=== PATIENT | female | born 1955 | race Caucasian/White ===

== ENCOUNTER 2025-08-04 19:10 | Emergency (ER) | payer OTHER, SELFPAY ==
[2025-08-04 19:12] VITALS: BP 162/99
[2025-08-04 19:49] LABS: Hematocrit 46.8 % (37.0-47.0); Hemoglobin 16.9 g/dL (12.0-16.0); Mean Corp Hgb Conc. 36.1 g/dL (33.0-37.0); Mean Corpuscular Volume 84.3 fL (81.0-99.0); Platelet Count 289 10^3/uL (130-400); Red Cell Dist. Width 12.1 % (11.5-14.5)
[2025-08-04 19:52] LABS: ALT (SGPT) 20 U/L (0-35); AST (SGOT) 22 U/L (14-36); Albumin 5.4 g/dl (3.5-5.0); Alkaline Phosphatase 77 U/L (38-126); Blood Urea Nitrogen 46 mg/dl (7-17); Calcium 9.9 mg/dl (8.4-10.2); Carbon Dioxide 11 mmol/L (22-30); Chloride 105 mmol/L (98-107); Glucose 179 mg/dl (70-99); Lipase 44 U/L (23-300); Potassium 3.7 mmol/L (3.5-5.1); Sodium 135 mmol/L (135-145); Total Protein 8.6 g/dl (6.3-8.2); eGFR 44.79
[2025-08-04 20:01] LABS: Nucleated Red Blood Cells % 0 %
[2025-08-04 20:40] VITALS: BMI 28.4
[2025-08-04 20:44] VITALS: BP 136/92
--- NOTE | 2025-08-04 20:50 | ED.GENMED ---
History of Present Illness
<Jessica Clemente NP - Last Filed: 08/04/25 22:51>
General
Chief Complaint: Abdominal Symptoms
Source: patient
Exam Limitations: none
Time Seen by Provider: 08/04/25 20:37
Nursing documentation reviewed up to this point in time: agreed with
History of Present Illness
History of Present Illness:
Patient to ED with complaint of vmiting and diarrhea. Symptoms started Saturday AM. Unable to eat or drink due to her symptoms. Denies fever/chills. Reports 12lb weight loss. Diffuse abd. discomfort. Brought to ED by spouse for eval.
Past History
<Jessica Clemente NP - Last Filed: 08/04/25 22:51>
Past History
ED Past Medical History: Hypothyroidism and Other (Gastric bypass in 2003)
ED Past Surgical History: Other (Gastric bypass)
Social History
Tobacco: Non-smoker
Alcohol: None
Family History
Family History: Negative Diabetes, Hypertension or CAD
Review of Systems
<Jessica Clemente NP - Last Filed: 08/04/25 22:51>
Review of Systems
All Other Systems: ROS reviewed and negative except as documented in HPI and ROS
Constitutional: Reports no symptoms
EENT: Reports no symptoms
Respiratory: Reports no symptoms
Cardiac: Reports no symptoms
ABD/GI: Reports abdominal pain (diffuse), nausea, vomiting, anorexia and other (abdominal cramping)
: Reports no symptoms
Musculoskeletal: Reports no symptoms
Skin: Reports no symptoms
Neurological: Reports weakness
Psychiatric: Reports no symptoms
Phy Exam
<Jessica Clemente NP - Last Filed: 08/04/25 22:51>
General Physical Exam
General Presentation: mild distress
General age: appears stated age
General Skin: warm and dry
General Habitus: normal
General Mental: alert
Cardiovascular Exam
Cardiovascular Exam: no edema and tachycardia
Pulmonary Exam
Pulmonary Exam: lungs clear and no respiratory distress
Gastrointestinal Exam
Gastrointestinal Exam: normal bowel sounds, soft, no organomegaly, no pulsatile mass and non distended
Palpation: generalized: Moderate tenderness
Musculoskeletal Exam
Musculoskeletal Exam: full ROM and neuro vasc intact
Skin Exam
Skin Exam: normal color, warm/dry and no rash
Psychiatric Exam
Psychiatric Exam: normal mood/affect
Course
<Jsesica Clemente WIRE [employer]ER - Last Filed: 08/04/25 22:51>
Orders/Labs/Results
Orders:
Orders
08/04/25 19:19
Complete Blood Count/With Diff Urgent
Comprehensive Metabolic Panel Urgent
Lactic Acid Urgent
Lipase Urgent
08/04/25 20:49
CT Abd/pelvis W Iv Cont Urgent
Comment:
Reason For Exam: diffuse pain, vomiting, diarrhea
STOOL [C difficile Antigen & Toxins] Urgent
[facility] Source: Feces/Stool
Specimen Description:
Stool Culture Urgent
[facility] Source: Feces/Stool
Specimen Description:
0.9% Sodium Chloride 1000 ml [Nss] 1,000 ml IV BOLUS
Ondansetron Injectable [Zofran] 4 mg IV NOW STA
08/04/25 22:15
0.9% Sodium Chloride 1000 ml [Nss] 1,000 ml IV BOLUS
08/04/25 23:05
Basic Metabolic Panel Urgent
Abnormal Lab Results
08/04/25
19:19
RBC 5.55 H 10^6/uL
(4.20-5.40)
Hgb 16.9 H g/dL
(12.0-16.0)
Absolute Lymphs (auto) 1.0 L 10^3/uL
(1.2-3.4)
Absolute Monos (auto) 1.2 H 10^3/uL
(0.1-0.6)
Lymphocytes % 15.3 L %
(20.5-51.1)
Monocytes % 19.7 H %
(1.7-9.3)
Carbon Dioxide 11 L* mmol/L
(22-30)
BUN 46 H mg/dl
(7-17)
Creatinine 1.3 H mg/dL
(0.6-1.0)
Glucose 179 H mg/dl
(70-99)
Total Protein 8.6 H g/dl
(6.3-8.2)
Albumin 5.4 H g/dl
(3.5-5.0)
08/04/25 19:19
Vital Signs
Initial and Last Documented VS:
Initial Vital Signs
Temp Pulse Resp BP Pulse Ox
98.0 F 119 20 162/99 97
08/04/25 19:12 08/04/25 19:12 08/04/25 19:12 08/04/25 19:12 08/04/25 19:12
Last Documented Vital Signs
Temp Pulse Resp BP Pulse Ox
98.0 F 95 21 139/99 97
08/04/25 19:12 08/04/25 21:45 08/04/25 21:45 08/04/25 21:00 08/04/25 21:45
<Tarun Salas, DO - Last Filed: 08/04/25 23:24>
Orders/Labs/Results
Orders:
Orders
08/04/25 19:19
Complete Blood Count/With Diff Urgent
Comprehensive Metabolic Panel Urgent
Lactic Acid Urgent
Lipase Urgent
08/04/25 20:49
CT Abd/pelvis W Iv Cont Urgent
Comment:
Reason For Exam: diffuse pain, vomiting, diarrhea
STOOL [C difficile Antigen & Toxins] Urgent
[place] Source: Feces/Stool
Specimen Description:
Stool Culture Urgent
[place] Source: Feces/Stool
Specimen Description:
0.9% Sodium Chloride 1000 ml [Nss] 1,000 ml IV BOLUS
Ondansetron Injectable [Zofran] 4 mg IV NOW STA
08/04/25 22:15
0.9% Sodium Chloride 1000 ml [Nss] 1,000 ml IV BOLUS
08/04/25 23:05
Basic Metabolic Panel Urgent
Abnormal Lab Results
08/04/25
19:19
RBC 5.55 H 10^6/uL
(4.20-5.40)
Hgb 16.9 H g/dL
(12.0-16.0)
Absolute Lymphs (auto) 1.0 L 10^3/uL
(1.2-3.4)
Absolute Monos (auto) 1.2 H 10^3/uL
(0.1-0.6)
Lymphocytes % 15.3 L %
(20.5-51.1)
Monocytes % 19.7 H %
(1.7-9.3)
Carbon Dioxide 11 L* mmol/L
(22-30)
BUN 46 H mg/dl
(7-17)
Creatinine 1.3 H mg/dL
(0.6-1.0)
Glucose 179 H mg/dl
(70-99)
Total Protein 8.6 H g/dl
(6.3-8.2)
Albumin 5.4 H g/dl
(3.5-5.0)
08/04/25 19:19
Vital Signs
Initial and Last Documented VS:
Initial Vital Signs
Temp Pulse Resp BP Pulse Ox
98.0 F 119 20 162/99 97
08/04/25 19:12 08/04/25 19:12 08/04/25 19:12 08/04/25 19:12 08/04/25 19:12
Last Documented Vital Signs
Temp Pulse Resp BP Pulse Ox
98.0 F 95 21 139/99 97
08/04/25 19:12 08/04/25 21:45 08/04/25 21:45 08/04/25 21:00 08/04/25 21:45
<Jessica Clemente W[employer] - Last Filed: 08/04/25 22:51>
*Pulse Oximetry
SaO2: 97
Oxygen Mode of Delivery: Room air
ED Attending Note
<Jessica Clemente W[employer] - Last Filed: 08/04/25 22:51>
-
Portions of this chart may have been created with voice recognition software.� Occasional wrong word or��sound alike� substitutions may have occurred due to the inherent limitations of voice recognition software.
<Tarun Salas, DO - Last Filed: 08/04/25 23:24>
ED Attending Note
Patient seen and examined by attending physician: Yes
ED Attending Note:
I have reviewed and agree with history and treatment plan by Jessica Clemente. My exam revealed 70 -year-old female in no acute distress. Patient feels much improved after IV fluids and is tolerating oral fluids at this time. Will repeat BMP. And
if bicarb is improving, and patient continues to feel well we will discharge home.
Discharge Plan
Departure
Prescriptions:
No Action
ascorbic acid (vitamin C) [Vitamin C] 500 MG tablet
500 mg PO DAILY
Systane (PF) 1 EACH dropperette
1 drp BOTH EYES HS
ginkgo biloba leaf extract 60 mg Capsule
120 mg PO DAILY Qty: 0
ferrous gluconate 225 mg (27 mg iron) Tablet
225 mg PO DAILY Qty: 0
calcium carb-D3-mag ox-zinc ox 333 mg-133 unit -133 mg-5 mg Tablet
1 tab PO DAILY Qty: 0
multivitamin with folic acid [Tab-A-Ralf] 1 TABLET tablet
1 tab PO DAILY
turmeric 400 mg Capsule
400 mg PO DAILY Qty: 0
hydroxyzine HCl 50 mg Tablet
50 mg PO HS
levothyroxine [Synthroid] 88 mcg Tablet
88 mcg PO DAILY
gmjaimupzul-culnztwoa-itq C-Mn [Glucosamine Complex] 500-400 mg Capsule
1 cap PO DAILY
coQ10 (ubiquinol) 100 mg Capsule
100 mg PO DAILY
Referrals:
Jessica Trivedi DO [Family Provider, Family Practice]
Interventions
Interventions:
*Risk Screen - Suicide Last Done: 08/04/25 20:44
*General Assessment Last Done: 08/04/25 19:12
*Neglect/Abuse Screening Last Done: 08/04/25 20:44
*ED- Fall Risk Assessment Last Done: 08/04/25 20:44
*ED COVID-19 Vaccine History Last Done: 08/04/25 20:44
NR-Vbvgsm-Sbmjgkrpuz Assessment Last Done: 08/04/25 20:50
Discharge Date and Time
Print Language: MALTESE
[2025-08-04 21:00] VITALS: BP 139/99
[2025-08-04] MEDS: ZOFRAN 4 MG IV (21:01)
[2025-08-04] MEDS: NSS 1000 IV ×2 (21:01→22:15)
[2025-08-04 22:00] VITALS: BP 159/137
[2025-08-04 23:00] VITALS: BP 129/69
[2025-08-04 23:51] LABS: Blood Urea Nitrogen 44 mg/dl (7-17); Calcium 8.4 mg/dl (8.4-10.2); Carbon Dioxide 18 mmol/L (22-30); Chloride 109 mmol/L (98-107); Estimated Creatinine Clearance 57 ml/min; Glucose 111 mg/dl (70-99); Potassium 3.6 mmol/L (3.5-5.1); Sodium 135 mmol/L (135-145); eGFR > 60.00
== END 2025-08-05 00:34 | disposition home or self-care (01) ==
LOC: EMR 19:10
PROVIDERS: Nurse Practitioner; Student in an Organized Health Care Education/Training Program; EMERGENCY PHYSICIAN Emergency Medicine; FAMILY PHYSICIAN Family Medicine
DX: K52.9 Noninfective gastroenteritis and colitis, unspecified (principal); E03.9 Hypothyroidism, unspecified; Z98.84 Bariatric surgery status
CPT/HCPCS: 99284; 96374; 96361 ×2; 74177; 80048; 80053; 83605; 83690; 85025; 87045; 87046; 87324; 87427; 87449; Q9967

== ENCOUNTER 2025-08-06 16:25 | Inpatient (IN) | payer OTHER, SELFPAY ==
[2025-08-06 11:21] VITALS: BP 118/82
[2025-08-06 12:17] VITALS: BMI 27.7
[2025-08-06 12:24] VITALS: BP 119/83
--- NOTE | 2025-08-06 12:29 | ED.GENMED ---
History of Present Illness
<Marla Mclain PA-C - Last Filed: 08/06/25 14:51>
General
Chief Complaint: Abdominal Symptoms
Source: patient
Exam Limitations: none
Time Seen by Provider: 08/06/25 12:14
History of Present Illness
History of Present Illness:
70yoF with a history of hypothyroidism presenting for evaluation of diarrhea. Symptoms initially began 4 days ago. She was seen in the ED on 08/04/2025 for the symptoms. She underwent CT abdomen which showed evidence of enteritis. Lab work
initially showed a metabolic acidosis with a bicarb of 11. She was given IV fluids and bicarb improved to 18 and she was discharged. Since discharge, her diarrhea has persisted. She has had approximately 6 bowel movements since midnight last
night which are watery. She feels extremely weak and was having trouble walking up the steps today. She is also having shortness of breath and intermittent chest pains particularly if she sits on her left side. She has some mild epigastric
discomfort which she attributes to her hiatal hernia. She denies any fevers, vomiting, hematochezia. No recent travel, sick contacts, suspicious food intake, or recent antibiotics. Stool testing sent 2 days ago. C. difficile testing negative,
stool culture still pending.
Past History
<Marla Mclain PA-C - Last Filed: 08/06/25 14:51>
Past History
ED Past Medical History: Hypothyroidism and Other (Gastric bypass in 2003)
ED Past Surgical History: Other (Gastric bypass)
Social History
Tobacco: Non-smoker
Alcohol: None
Family History
Family History: Negative Diabetes, Hypertension or CAD
Phy Exam
<Marla Mclain PA-C - Last Filed: 08/06/25 14:51>
General Physical Exam
General Presentation: well appearing and no apparent distress
General Skin: warm and dry
General Habitus: normal
General Mental: alert
ENT Exam
ENT Exam: normocephalic
Cardiovascular Exam
Cardiovascular Exam: regular rate/rhythm
Pulmonary Exam
Pulmonary Exam: lungs clear, no respiratory distress, no rales, no crackles, no rhonchi and no wheezing
Gastrointestinal Exam
Gastrointestinal Exam: soft, non distended and other (Mild tenderness in epigastrium. Abdomen soft, non-distended. No rebound or guarding.)
Neurological Exam
Neurological Exam: alert
[place] Coma Scale
Eye Opening: Spontaneous
Verbal Response: Oriented
Motor Response: Obeys Commands
GCS Total Score: 15
Skin Exam
Skin Exam: normal color and warm/dry
Psychiatric Exam
Psychiatric Exam: normal mood/affect
<Jordon Lindsey MD - Last Filed: 08/08/25 20:58>
[place] Coma Scale
GCS Total Score: 15
<Chucky Eric PA-C - Last Filed: 08/08/25 08:37>
[place] Coma Scale
GCS Total Score: 15
Course
<Marla Mclain PA-C - Last Filed: 08/06/25 14:51>
Orders/Labs/Results
Orders:
Orders
08/06/25 12:25
Electrocardiogram (*1) Urgent
Reason for Study: Shortness of Breath
EKG- Treatment ONCE
0.9% Sodium Chloride 1000 ml [Nss] 1,000 ml IV BOLUS
Ondansetron Injectable [Zofran] 4 mg IV NOW STA
08/06/25 12:31
Complete Blood Count/With Diff Urgent
Comprehensive Metabolic Panel Urgent
Lipase Urgent
Magnesium Urgent
Troponin I Urgent
08/06/25 13:38
Potassium Chloride [KCl] 40 meq PO NOW STA
08/06/25 13:49
Potassium Chloride [KCl] 20 meq 0.9% Sodium Chloride 150 ml [Nss] 150 ml IV NOW
08/06/25 13:50
Ketorolac [Toradol] 15 mg IV NOW STA
08/06/25 16:10
Admit/Transfer Patient As Directed
Co-Sign Provider:
Level of Care: Inpatient admission
Assign to:: Medical/Surgical
Physician / Group: hospitalist
Diagnosis: Gastroenteritis
Reason for Hospitalization: Gastroenteritis, IV hydration
Expected length of stay greater than two midnights?: Yes
ELOS- Estimated Length of Stay in days: 3
I certify the patient meets the requirements for IP care: Yes
08/06/25 16:11
PRN Pain Medication Management As Directed
May give lesser potent ordered pain med per pt: Yes
preference::
Protocol:: Medication orders for pain may be administered in a
manner that supports deferring to patient preference
when the pt is:
- Requesting an ordered lesser potent pain medication.
Least to most potent pain medications are defined
as: acetaminophen < NSAID < tramadol < opioids
(morphine, oxycodone, hydromorphone).
- Requesting a lesser dose of the same medication IF
ORDERED.
- Requesting a less intrusive route of administration
if both routes are prescribed by the provider (PO <
IV).
08/06/25 16:13
Code Status As Directed
Resuscitation Status: Full Code
08/06/25 16:17
Add On - Microbiology Routine
Tests Added?: Norovirus by PCR
Lactated Ringers [Lr] 1,000 ml IV BOLUS
CR Chest - 2 Views Routine
Reason For Exam: SOB
08/06/25 17:00
Pantoprazole [Protonix] 40 mg PO DAILY
08/06/25 17:27
Acetaminophen [Tylenol] 650 mg PO Q4HPRN PRN
Lactated Ringers [Lr] 1,000 ml IV 100 mls/hr
Ondansetron Injectable [Zofran] 4 mg IV Q6HPRN PRN
08/06/25 17:27
Activity As Directed
Activity Level: With Assistance
Vital Signs As Directed
Frequency: Per unit guidelines
DX Deep Vein Thrombosis Video Routine
08/06/25 19:00
Enoxaparin Sodium [Lovenox] 40 mg SC QPM
08/06/25 20:48
BMP [Basic Metabolic Panel] Routine
Lactate Level [Lactic Acid] Routine
TSH Reflex To Free T4 Routine
08/06/25 22:00
Artificial Tears (Pf) [Refresh Eye Drops (Pf)] 1 drops BOTH EYES HS
HydrOXYZINE [Atarax] 50 mg PO HS
08/07/25 06:00
Levothyroxine [Synthroid] 88 mcg PO DAILY@0600
08/07/25 07:17
Basic Metabolic Panel IN AM
08/07/25 09:02
Complete Blood Count/No Diff IN AM
Abnormal Lab Results
08/06/25
12:31
Hgb 16.3 H g/dL
(12.0-16.0)
MCHC 37.2 H g/dL
(33.0-37.0)
Abs Immat Gran (auto) 0.1 H 10^3/uL
(0-0.05)
Absolute Monos (auto) 1.3 H 10^3/uL
(0.1-0.6)
Immature Gran % 1.0 H %
(0-0.5)
Monocytes % 15.8 H %
(1.7-9.3)
Potassium 2.9 L mmol/L
(3.5-5.1)
Carbon Dioxide 16 L mmol/L
(22-30)
BUN 32 H mg/dl
(7-17)
Glucose 102 H mg/dl
(70-99)
08/06/25 12:31
08/06/25 12:31
Vital Signs
Initial and Last Documented VS:
Initial Vital Signs
Temp Pulse Resp BP Pulse Ox
98.2 F 104 22 118/82 97
08/06/25 11:21 08/06/25 11:21 08/06/25 11:21 08/06/25 11:21 08/06/25 11:21
Last Documented Vital Signs
Temp Pulse Resp BP Pulse Ox
98.2 F 81 18 125/78 100
08/08/25 16:00 08/08/25 16:00 08/08/25 16:00 08/08/25 16:00 08/08/25 16:00
<Jordon Lindsey MD - Last Filed: 08/08/25 20:58>
Orders/Labs/Results
Orders:
Orders
08/06/25 12:25
Electrocardiogram (*1) Urgent
Reason for Study: Shortness of Breath
EKG- Treatment ONCE
0.9% Sodium Chloride 1000 ml [Nss] 1,000 ml IV BOLUS
Ondansetron Injectable [Zofran] 4 mg IV NOW STA
08/06/25 12:31
Complete Blood Count/With Diff Urgent
Comprehensive Metabolic Panel Urgent
Lipase Urgent
Magnesium Urgent
Troponin I Urgent
08/06/25 13:38
Potassium Chloride [KCl] 40 meq PO NOW STA
08/06/25 13:49
Potassium Chloride [KCl] 20 meq 0.9% Sodium Chloride 150 ml [Nss] 150 ml IV NOW
08/06/25 13:50
Ketorolac [Toradol] 15 mg IV NOW STA
08/06/25 16:10
Admit/Transfer Patient As Directed
Co-Sign Provider:
Level of Care: Inpatient admission
Assign to:: Medical/Surgical
Physician / Group: hospitalist
Diagnosis: Gastroenteritis
Reason for Hospitalization: Gastroenteritis, IV hydration
Expected length of stay greater than two midnights?: Yes
ELOS- Estimated Length of Stay in days: 3
I certify the patient meets the requirements for IP care: Yes
08/06/25 16:11
PRN Pain Medication Management As Directed
May give lesser potent ordered pain med per pt: Yes
preference::
Protocol:: Medication orders for pain may be administered in a
manner that supports deferring to patient preference
when the pt is:
- Requesting an ordered lesser potent pain medication.
Least to most potent pain medications are defined
as: acetaminophen < NSAID < tramadol < opioids
(morphine, oxycodone, hydromorphone).
- Requesting a lesser dose of the same medication IF
ORDERED.
- Requesting a less intrusive route of administration
if both routes are prescribed by the provider (PO <
IV).
08/06/25 16:13
Code Status As Directed
Resuscitation Status: Full Code
08/06/25 16:17
Add On - Microbiology Routine
Tests Added?: Norovirus by PCR
Lactated Ringers [Lr] 1,000 ml IV BOLUS
CR Chest - 2 Views Routine
Reason For Exam: SOB
08/06/25 17:00
Pantoprazole [Protonix] 40 mg PO DAILY
08/06/25 17:27
Acetaminophen [Tylenol] 650 mg PO Q4HPRN PRN
Lactated Ringers [Lr] 1,000 ml IV 100 mls/hr
Ondansetron Injectable [Zofran] 4 mg IV Q6HPRN PRN
08/06/25 17:27
Activity As Directed
Activity Level: With Assistance
Vital Signs As Directed
Frequency: Per unit guidelines
DX Deep Vein Thrombosis Video Routine
08/06/25 19:00
Enoxaparin Sodium [Lovenox] 40 mg SC QPM
08/06/25 20:48
BMP [Basic Metabolic Panel] Routine
Lactate Level [Lactic Acid] Routine
TSH Reflex To Free T4 Routine
08/06/25 22:00
Artificial Tears (Pf) [Refresh Eye Drops (Pf)] 1 drops BOTH EYES HS
HydrOXYZINE [Atarax] 50 mg PO HS
08/07/25 06:00
Levothyroxine [Synthroid] 88 mcg PO DAILY@0600
08/07/25 07:17
Basic Metabolic Panel IN AM
08/07/25 09:02
Complete Blood Count/No Diff IN AM
Abnormal Lab Results
08/06/25
12:31
Hgb 16.3 H g/dL
(12.0-16.0)
MCHC 37.2 H g/dL
(33.0-37.0)
Abs Immat Gran (auto) 0.1 H 10^3/uL
(0-0.05)
Absolute Monos (auto) 1.3 H 10^3/uL
(0.1-0.6)
Immature Gran % 1.0 H %
(0-0.5)
Monocytes % 15.8 H %
(1.7-9.3)
Potassium 2.9 L mmol/L
(3.5-5.1)
Carbon Dioxide 16 L mmol/L
(22-30)
BUN 32 H mg/dl
(7-17)
Glucose 102 H mg/dl
(70-99)
08/06/25 12:31
08/06/25 12:31
Vital Signs
Initial and Last Documented VS:
Initial Vital Signs
Temp Pulse Resp BP Pulse Ox
98.2 F 104 22 118/82 97
08/06/25 11:21 08/06/25 11:21 08/06/25 11:21 08/06/25 11:21 08/06/25 11:21
Last Documented Vital Signs
Temp Pulse Resp BP Pulse Ox
98.2 F 81 18 125/78 100
08/08/25 16:00 08/08/25 16:00 08/08/25 16:00 08/08/25 16:00 08/08/25 16:00
<Chucky Eric PA-C - Last Filed: 08/08/25 08:37>
Orders/Labs/Results
Orders:
Orders
08/06/25 12:25
Electrocardiogram (*1) Urgent
Reason for Study: Shortness of Breath
EKG- Treatment ONCE
0.9% Sodium Chloride 1000 ml [Nss] 1,000 ml IV BOLUS
Ondansetron Injectable [Zofran] 4 mg IV NOW STA
08/06/25 12:31
Complete Blood Count/With Diff Urgent
Comprehensive Metabolic Panel Urgent
Lipase Urgent
Magnesium Urgent
Troponin I Urgent
08/06/25 13:38
Potassium Chloride [KCl] 40 meq PO NOW STA
08/06/25 13:49
Potassium Chloride [KCl] 20 meq 0.9% Sodium Chloride 150 ml [Nss] 150 ml IV NOW
08/06/25 13:50
Ketorolac [Toradol] 15 mg IV NOW STA
08/06/25 16:10
Admit/Transfer Patient As Directed
Co-Sign Provider:
Level of Care: Inpatient admission
Assign to:: Medical/Surgical
Physician / Group: hospitalist
Diagnosis: Gastroenteritis
Reason for Hospitalization: Gastroenteritis, IV hydration
Expected length of stay greater than two midnights?: Yes
ELOS- Estimated Length of Stay in days: 3
I certify the patient meets the requirements for IP care: Yes
08/06/25 16:11
PRN Pain Medication Management As Directed
May give lesser potent ordered pain med per pt: Yes
preference::
Protocol:: Medication orders for pain may be administered in a
manner that supports deferring to patient preference
when the pt is:
- Requesting an ordered lesser potent pain medication.
Least to most potent pain medications are defined
as: acetaminophen < NSAID < tramadol < opioids
(morphine, oxycodone, hydromorphone).
- Requesting a lesser dose of the same medication IF
ORDERED.
- Requesting a less intrusive route of administration
if both routes are prescribed by the provider (PO <
IV).
08/06/25 16:13
Code Status As Directed
Resuscitation Status: Full Code
08/06/25 16:17
Add On - Microbiology Routine
Tests Added?: Norovirus by PCR
Lactated Ringers [Lr] 1,000 ml IV BOLUS
CR Chest - 2 Views Routine
Reason For Exam: SOB
08/06/25 17:00
Pantoprazole [Protonix] 40 mg PO DAILY
08/06/25 17:27
Acetaminophen [Tylenol] 650 mg PO Q4HPRN PRN
Lactated Ringers [Lr] 1,000 ml IV 100 mls/hr
Ondansetron Injectable [Zofran] 4 mg IV Q6HPRN PRN
08/06/25 17:27
Activity As Directed
Activity Level: With Assistance
Vital Signs As Directed
Frequency: Per unit guidelines
DX Deep Vein Thrombosis Video Routine
08/06/25 19:00
Enoxaparin Sodium [Lovenox] 40 mg SC QPM
08/06/25 20:48
BMP [Basic Metabolic Panel] Routine
Lactate Level [Lactic Acid] Routine
TSH Reflex To Free T4 Routine
08/06/25 22:00
Artificial Tears (Pf) [Refresh Eye Drops (Pf)] 1 drops BOTH EYES HS
HydrOXYZINE [Atarax] 50 mg PO HS
08/07/25 06:00
Levothyroxine [Synthroid] 88 mcg PO DAILY@0600
08/07/25 07:17
Basic Metabolic Panel IN AM
08/07/25 09:02
Complete Blood Count/No Diff IN AM
Abnormal Lab Results
08/06/25
12:31
Hgb 16.3 H g/dL
(12.0-16.0)
MCHC 37.2 H g/dL
(33.0-37.0)
Abs Immat Gran (auto) 0.1 H 10^3/uL
(0-0.05)
Absolute Monos (auto) 1.3 H 10^3/uL
(0.1-0.6)
Immature Gran % 1.0 H %
(0-0.5)
Monocytes % 15.8 H %
(1.7-9.3)
Potassium 2.9 L mmol/L
(3.5-5.1)
Carbon Dioxide 16 L mmol/L
(22-30)
BUN 32 H mg/dl
(7-17)
Glucose 102 H mg/dl
(70-99)
08/06/25 12:31
08/06/25 12:31
Vital Signs
Initial and Last Documented VS:
Initial Vital Signs
Temp Pulse Resp BP Pulse Ox
98.2 F 104 22 118/82 97
08/06/25 11:21 08/06/25 11:21 08/06/25 11:21 08/06/25 11:21 08/06/25 11:21
Last Documented Vital Signs
Temp Pulse Resp BP Pulse Ox
98.2 F 81 18 125/78 100
08/08/25 16:00 08/08/25 16:00 08/08/25 16:00 08/08/25 16:00 08/08/25 16:00
<Marla Mclain PA-C - Last Filed: 08/06/25 14:51>
MDM/Problems Addressed
Differential Diagnosis Includes:
70yoF here with diarrhea and weakness. Seen in ED 2 days ago for the same. Ongoing diarrhea but now much more weak. Had trouble getting up the steps today. HR 104. Remainder of vitals stable. She appears fatigued but is non-toxic. No signs of
peritonitis on abdominal exam. Differential diagnosis includes but is not limited to: Dehydration, electrolyte abnormality, FAITH, viral gastroenteritis, bacterial gastroenteritis
Initial ED plan: Check abdominal labs, magnesium, troponin/EKG. Will defer repeat CT. IV Zofran and fluid bolus for symptoms.
<Marla Mclain PA-C - Last Filed: 08/06/25 14:51>
*Pulse Oximetry
SaO2: 95
Oxygen Mode of Delivery: Room air
Patient hypoxic: no (97%)
*EKG
Interpreted by ED Provider?: Yes
EKG Intrepretation Date: 08/06/25
Heart Rate: 85
Rate: normal
Rhythm: sinus
[place]: left axis deviation
Interval: normal interval
Ischemia: non-specific ST changes
*Critical Care Note
Total Time (30-74mins, 75-104mins- exclusive of procedures): Not Applicable
<Marla Mclain PA-C - Last Filed: 08/06/25 14:51>
Update Note
Update Note:
Labs reveal a potassium of 2.9 and replacement ordered. Persistent metabolic acidosis noted with a bicarb of 16. Creatinine within normal limits. Given decline in status and ongoing diarrhea, will admit for hydration and electrolyte replacement.
<Chucky Eric PA-C - Last Filed: 08/08/25 08:37>
Update Note
Update Note:
Labs reveal a potassium of 2.9 and replacement ordered. Persistent metabolic acidosis noted with a bicarb of 16. Creatinine within normal limits. Given decline in status and ongoing diarrhea, will admit for hydration and electrolyte replacement.
August 08, 2025 8:37 AM: Stool culture positive for Aeromonas Veronii species. Hospitalist team notified as patient was recently admitted, they are aware of these findings.
ED Attending Note
<Marla Mclain PA-C - Last Filed: 08/06/25 14:51>
-
Portions of this chart may have been created with voice recognition software.� Occasional wrong word or��sound alike� substitutions may have occurred due to the inherent limitations of voice recognition software.
<Jordon Lindsey MD - Last Filed: 08/08/25 20:58>
ED Attending Note
Patient seen and examined by attending physician: Yes
ED Attending Note:
Pt presents to ED secondary to persistent diarrhea along with generalized weakness and fatigue over the past 4 days. Pt was seen in ED 2 days ago for similar complaint. Since then, nonbloody diarrhea has persisted. Denies fever. Denies
nausea/vomiting. Denies loss of appetite, but as soon as she eats, she's going to the bathroom w diarrhea, causing her to be extremely tired and fatigued. Denies recent travel. Denies sick contact. Denies recent change in medications/diet.
Physical Exam
General: mild distress, not acutely ill. afebrile
Head: nc/at. eomi
Neck: supple. no meningeal signs.
Heart: s1/s2 regular rate and rhythm,
Lungs: no acute respiratory distress. clear bilaterally
Abdomen: normal bowel sounds. not tender.
Neuro: alert and oriented x 3. no focal neurological deficits
Skin: no rash
Psychiatric: well kept. interactive and cooperative
Extremities: no edema. no calf tenderness.
Blood work reviewed, significant for metabolic acidosis along with hypokalemia, likely secondary to continual GI loss from ongoing diarrhea. In light of patient's overall declining of his condition with poor oral intake, along with lab
abnormalities, patient will be admitted for further evaluation and treatment, including electrolyte repletion and continued IV fluids. Stool culture result from 2 days ago, to be reviewed
Discharge Plan
Departure
Patient Disposition: Admit
Date of Disposition: 08/06/25
Time of Disposition: 14:30
Presentation/result/management discussed w/ accepting MD/DO: Hospitalist
Discharge Problem:
Acute diarrhea, Hypokalemia, Generalized weakness, Metabolic acidosis
Interventions
Interventions:
*Risk Screen - Suicide Last Done: 08/06/25 11:21
*General Assessment Last Done: 08/06/25 11:21
*Neglect/Abuse Screening Last Done: 08/06/25 11:21
*ED- Fall Risk Assessment Last Done: 08/06/25 12:25
*ED COVID-19 Vaccine History Last Done: 08/06/25 12:25
*Nursing Disposition Last Done: 08/06/25 17:22
CG-Blloyb-Fvaawomlml Assessment Last Done: 08/06/25 16:34
Discharge Date and Time
Discharge Date/Time: 08/06/25 17:22
[2025-08-06] MEDS: NSS 1000 IV (12:34)
[2025-08-06] MEDS: ZOFRAN 4 MG IV (12:38)
[2025-08-06 12:48] LABS: Hematocrit 43.8 % (37.0-47.0); Hemoglobin 16.3 g/dL (12.0-16.0); Mean Corp Hgb Conc. 37.2 g/dL (33.0-37.0); Mean Corpuscular Volume 82.5 fL (81.0-99.0); Nucleated Red Blood Cells % 0 %; Platelet Count 339 10^3/uL (130-400); Red Cell Dist. Width 12.1 % (11.5-14.5)
[2025-08-06 13:07] LABS: ALT (SGPT) 17 U/L (0-35); AST (SGOT) 19 U/L (14-36); Albumin 4.8 g/dl (3.5-5.0); Alkaline Phosphatase 82 U/L (38-126); Blood Urea Nitrogen 32 mg/dl (7-17); Calcium 9.9 mg/dl (8.4-10.2); Carbon Dioxide 16 mmol/L (22-30); Chloride 105 mmol/L (98-107); Estimated Creatinine Clearance 63 ml/min; Glucose 102 mg/dl (70-99); Lipase 80 U/L (23-300); Magnesium 1.8 mg/dl (1.6-2.3); Potassium 2.9 mmol/L (3.5-5.1); Sodium 135 mmol/L (135-145); Total Protein 7.6 g/dl (6.3-8.2); eGFR > 60.00
[2025-08-06 13:17] LABS: Troponin I < 0.012 ng/ml
[2025-08-06] MEDS: KCL 40 MEQ PO (13:56)
[2025-08-06] MEDS: TORADOL 15 MG IV (13:59)
[2025-08-06] MEDS: KCL 160 MEQ IV (14:00)
[2025-08-06 15:00] VITALS: BP 120/80
[2025-08-06 16:00] VITALS: BP 120/78
--- NOTE | 2025-08-06 16:20 | HPS.HSE ---
Addendum entered and electronically signed by Oscar Massey MD 08/06/25 17:11:
Seen and examined and discussed with resident in detail I am in agreement with plan and management mentioned by resident.
Patient awake, alert and oriented accompanied by the at the bedside, presented again to the hospital complaining of persistent nonbloody diarrhea and abdominal bloating and discomfort without any nausea or vomiting, no fever or chill, admit
poor appetite.
Denies sick contacts or recent travel or dining outside, 2 days ago she was yellow stool workup so far is pending except C. difficile is negative.
She is complaining of the shortness of breath, and fatigue reproducible pain in the left rib cage area.
Vital signs reviewed
Physical exam:
General: Awake, alert and oriented x3, lethargic not in distress and holds appropriate conversation.
HEENT: No active discharge, ecchymosis or bruising, dry lips, tongue and mucous membrane.
Eyes: No discharge or red conjunctiva, no nystagmus, pupils are reactive and equal
Neck:Supple, no JVD no bruit no goiter.
Respiratory: Normal AP contour and diameter, normal chest wall movement, normal respiratory effort, no respiratory distress,
Lungs: Good air entry bilaterally, no wheezing or rhonchi, no rales or crackles
Heart: S1, S2 regular, normal rate, no added sound.
Gastrointestinal: Positive bowel sounds, soft, nontender, no guarding or rigidity or organomegaly
Musculoskeletal: , no chest wall abnormality or tenderness. All joints and extremities have good range of motion, no muscle tenderness or any joint swelling or tenderness.
Extremities: No pitting edema, good peripheral pulses, good range of motion
Workup including labs, imaging, EKG and archive reviewed.
CT scan couple days showed gastroenteritis
Assessment and plan:
Gastroenteritis:
Possibly viral while other causes need to be considered.
Get a chest x-ray to rule out pneumonia especially Legionella left because of the diarrhea specially with reproducible chest pain and shortness of breath
Stool culture still pending
IV fluid
Full liquid diet advance as tolerated.
Monitor vital sign
Recheck lab
Reproducible pain in the left rib cage, likely musculoskeletal in
Get a chest x-ray to rule out pneumonia although fractured rib, doubted cardiac causes,
All discussed with the patient and the family
Discussed with nurse practitioner
Metabolic acidosis: Likely secondary to recurrent diarrhea
Give a liter of Ringer lactate and continue Ringer lactate at 100 mL/h
Recheck lab
Not improving may consider bicarb or bicarb drip
Hypokalemia: Replace and recheck
The rest of the assessment and management as below
All discussed with the patient and the in detail and expressed understanding of the question answered
Discussed with the resident
Original Note:
Family Physician
-
Family Physician: Jessica Trivedi
Chief Complaint
-
Nausea, diarrhea, generalized weakness
History of Present Illness
70-year-old female with history of hypothyroidism and internal hemorrhoids, who presents with nausea/retching, diarrhea, generalized weakness x 4 days. Symptoms have been ongoing for 4 days with increasing weakness that has not resulted in
shortness of breath on exertion such as climbing stairs. Diarrhea was initially mucus-like and then became watery. She was seen and [facility] ED 2 days ago for the same symptoms. At the time, bicarb was 11 but improved to 18 after
receiving bicarb and IV fluids. At home she has been drinking broth and Gatorade but states that she does not seem to be able to retain any fluids due to recurrent watery diarrhea throughout the day. Unfortunately there was no improvement in her
symptoms since she was seen in the ED.
She reports exertional SOB, positional left-sided chest pain, poor oral intake, and abdominal cramping prior to bowel movements. Denies fever/chills, vomiting, bloody in stool, recent illness, recent abx use, recent travel, sick contacts or dietary
change. She does take ginkgo biloba as a brain health supplement.
Medical History
Past Medical History
Past Medical History: Reports HTN and Other (Internal hemorrhoid)
Past Surgical History: Reports Cholecystectomy and Other (Gastric bypass)
Social History
Tobacco: Former Smoker (Quit 40 years ago)
Alcohol: Occasional
Drug: None
Personal:
Living: With Family
Employment: Employed
Family History
Family History: Other (Cousins with dementia)
Allergies / Home Medications
Allergies reflects when Allergies were last updated in [employer].
Home Medications with original date entered in [employer]
Allergy/Medication List:
Allergies
Allergy/AdvReac Type Severity Reaction Status Date / Time
metronidazole (From Flagyl) Allergy severe Verified 08/06/25 11:20
nausea and
vomiting
Home Medications
ascorbic acid (vitamin C) 500 mg tablet (Vitamin C) 500 mg PO DAILY 10/13/18
calcium 333 mg-vit D3 133 unit-magnesium 133 mg-zinc 5 mg tablet 1 tab PO DAILY ##0 10/13/18
ferrous gluconate 225 mg (27 mg iron) tablet 225 mg PO DAILY ##0 10/13/18
ginkgo biloba leaf extract 60 mg capsule 120 mg PO DAILY ##0 10/13/18
multivitamin with folic acid 400 mcg tablet (Tab-A-Ralf) 1 tab PO DAILY 10/13/18
peg 400-propylene glycol (PF) 0.4 %-0.3 % eye drops in a dropperette (Systane (PF)) 1 drp BOTH EYES HS 10/13/18
turmeric 400 mg capsule 400 mg PO DAILY ##0 10/13/18
coQ10 (ubiquinol) 100 mg capsule 100 mg PO DAILY 08/04/25
elsgltcxadf-wbkmcynos-wae C-Mn 500 mg-400 mg capsule 1 cap PO DAILY 08/04/25
hydroxyzine HCl 50 mg tablet 50 mg PO HS 08/04/25
levothyroxine 88 mcg tablet (Synthroid) 88 mcg PO DAILY 08/04/25
acetaminophen 325 mg tablet (Tylenol) 650 mg PO DAILY 08/06/25
Review of Systems
-
History Source: Patient
Constitutional: Reports Weight Loss and Fatigue; Denies Fever or Chills
Respiratory: Reports Trouble Breathing (on exertion) and Other (Left-sided positional chest pain, )
Cardiac: Denies Palpitations
Abdomen/GI: Reports Abdominal Pain (Epigastric discomfort, abdominal cramping prior to bowel movements), Diarrhea and Anorexia; Denies Constipated, Bloody Stools or Black Stools
: Denies Dysuria, Difficulty Voiding or Bleeding
Physical Exam
Vital Signs
Vital Signs
Temp Pulse Resp BP Pulse Ox
98.2 F 95 18 119/83 95
08/06/25 12:25 08/06/25 12:24 08/06/25 12:25 08/06/25 12:24 08/06/25 12:31
Physical Exam
General: Comfortable
HEENT: NormoCephalic, Anicteric and Other (Dry mucous membrane)
Respiratory: Clear and Non Labored Respirations; No Wheezes, Rales, Rhonchi or Crackles
Cardiac: S1/S2 and Regular Rhythm; No Murmur, Rub, Gallop, Peripheral Edema or Calf Tenderness
GI: Soft, Non Distended, Tender (Mild epigastric tenderness) and Other (Hyperactive bowel sound)
Musculoskeletal: No Clubbing, No Cyanosis and No Edema
Skin: Warm and Dry
Neuro: Awake, Alert and Oriented
Psych: Calm
Laboratory Results
-
08/06/25 12:31
Laboratory Results
Total Bilirubin 0.8 mg/dl (0.2-1.3) 08/06/25 12:31
AST 19 U/L (14-36) 08/06/25 12:31
ALT 17 U/L (0-35) 08/06/25 12:31
Alkaline Phosphatase 82 U/L (38-126) 08/06/25 12:31
Troponin I < 0.012 ng/ml 08/06/25 12:31
Lipase 80 U/L (23-300) 08/06/25 12:31
Impression/Plan
-
IMPRESSION:
70-year-old female with history of hypothyroidism and internal hemorrhoids, who presents with gastroenteritis, electrolyte abnormality, metabolic acidosis.
PLAN:
Gastroenteritis:
- Ongoing nausea, diarrhea. CT abdomen and pelvis with enteritis
- Check lactate
- Zofran, PPI
- IV hydration with lactated Ringer's
- Patient expresses desire for food. Will try low residue diet. Advance as tolerated
-Hold oral supplements.
- Check TSH
- Negative for C. difficile. Await stool culture, check norovirus
Metabolic acidosis:
- Secondary to GI loss
- IV fluid hydration with lactated Ringer's
Hypokalemia:
- Status post 40 meq oral 20 meq IV
- Recheck BMP at 8 PM, replete if needed
Shortness of breath/intermittent positional chest pain:
- Likely secondary to depletion from ongoing gastroenteritis
- Will check chest x-ray
Polycythemia:
Secondary to contraction
-Follow CBC
Ovarian cyst:
Noted on CT abdomen/pelvis. Outpatient follow-up with PCP is recommended
Sigmoid diverticulosis:
- Stable
DVT prophylaxis: Lovenox
CODE STATUS: Full code
[2025-08-06] MEDS: LR 1000 IV ×2 (16:25→18:31)
[2025-08-06] MEDS: PROTONIX 40 MG PO (16:31)
[2025-08-06 17:32] VITALS: BMI 27.5
[2025-08-06 17:33] VITALS: BP 145/77
[2025-08-06] MEDS: LOVENOX 40 MG SC (18:31)
[2025-08-06 21:17] LABS: Blood Urea Nitrogen 29 mg/dl (7-17); Calcium 9.4 mg/dl (8.4-10.2); Carbon Dioxide 19 mmol/L (22-30); Chloride 109 mmol/L (98-107); Estimated Creatinine Clearance 81 ml/min; Glucose 71 mg/dl (70-99); Potassium 3.1 mmol/L (3.5-5.1); Sodium 137 mmol/L (135-145); eGFR > 60.00
[2025-08-06] MEDS: ATARAX 50 MG PO (22:09)
[2025-08-06] MEDS: REFRESH EYE DROPS (PF) 1 DROPS BOTH EYES (22:10)
[2025-08-06 22:34] VITALS: BP 115/73
[2025-08-06] MEDS: KCL 270 MEQ IV (23:22)
[2025-08-07] MEDS: SYNTHROID 88 MCG PO (05:52)
[2025-08-07] MEDS: LR 1000 IV ×2 (05:53→07:52)
[2025-08-07 06:00] VITALS: BMI 27.5
[2025-08-07 07:15] VITALS: BP 115/64
[2025-08-07] MEDS: PROTONIX 40 MG PO (07:48)
[2025-08-07 09:06] LABS: Blood Urea Nitrogen 18 mg/dl (7-17); Calcium 8.8 mg/dl (8.4-10.2); Carbon Dioxide 17 mmol/L (22-30); Chloride 112 mmol/L (98-107); Estimated Creatinine Clearance 94 ml/min; Glucose 71 mg/dl (70-99); Magnesium 1.8 mg/dl (1.6-2.3); Potassium 3.2 mmol/L (3.5-5.1); Sodium 138 mmol/L (135-145); eGFR > 60.00
--- NOTE | 2025-08-07 09:43 | CM ---
Patient seen bedside, initial assessment completed. Patient is a 70-year-old female with history of hypothyroidism and internal hemorrhoids, who presents with nausea/retching, diarrhea, generalized weakness x 4 days.
Patient resides w/ spouse, their son and son's family in a 2STH, 1 step to enter the home. Patient is independent in all areas, no DME, no therapy hx reported.
Address, point of contact and insurance verified
PCP: Jessica Trivedi
Pharmacy: [facility]
Plan: Anticipating home, no needs
[2025-08-07 10:42] LABS: Hematocrit 35.0 % (37.0-47.0); Hemoglobin 12.9 g/dL (12.0-16.0); Mean Corp Hgb Conc. 36.9 g/dL (33.0-37.0); Mean Corpuscular Volume 85.0 fL (81.0-99.0); Platelet Count 291 10^3/uL (130-400); Red Cell Dist. Width 12.3 % (11.5-14.5)
--- NOTE | 2025-08-07 11:08 | W.PN.HOSP.TC ---
Today's Communication/Plan
-
start rocephin
cont IVF with bicarb
replete K
Assessment / Plan
Assessment / Plan
pt is a 70 year old female
Ongoing diarrhea with metabolic acidosis from bicarbonate stool losses--no abdominal pain--suspect Gastroenteritis--C. diff neg--stool culture with aeromonas veronii--CT with enteritis--start rocephin--cont IVF with bicarb
hypokalemia--replete
Shortness of breath/intermittent positional chest pain-- Likely secondary to depletion from ongoing gastroenteritis
Polycythemia--Secondary to volume contraction--improved
Ovarian cyst--Noted on CT abdomen/pelvis. Outpatient follow-up with PCP is recommended
Sigmoid diverticulosis--- Stable
DVT prophy--Lovenox
CODE STATUS-- Full code
Anticipated Discharge: 24 - 48 hours
Subjective/Interval History
-
Date of Service: August 07, 2025
pt still c/o diarrhea
Objective Data
-
Labs:
Laboratory Results
08/07/25 08/07/25
07:17 09:02
WBC 6.9
Hgb 12.9 D
Hct 35.0 L
Plt Count 291
Sodium 138
Potassium 3.2 L
Chloride 112 H
Carbon Dioxide 17 L
BUN 18 H
Creatinine 0.6
Glucose 71
Calcium 8.8
Vital Signs:
max temp for 24 hours
08/06/25
17:33
Temp 98.5 F
Vital Signs
Temp Pulse Resp BP Pulse Ox
98.2 F 85 16 115/64 97
08/07/25 07:15 08/07/25 07:15 08/07/25 07:15 08/07/25 07:15 08/07/25 07:15
I&O
08/06/25 08/07/25 08/08/25
06:59 06:59 06:59
Intake Total 1969
Balance 1969
Review of Systems
-
All other systems: Reviewed and negative
Abdomen/GI: Reports Diarrhea
Physical Exam
-
General: Well Developed, Well Nourished and No Apparent Distress
HEENT: Normocephalic and Atraumatic
Respiratory: Clear to Auscultation; Negative Wheezes or Rhonchi
Cardiac: Regular Rhythm and S1/S2; Negative Murmur
GI: Soft, Nontender, Nondistended and Normal Bowel Sounds
Musculoskeletal: No Clubbing, No Cyanosis and No Edema
Neuro: Awake
Psych: Calm
[2025-08-07] MEDS: ROCEPHIN 1000 MG IV (12:11)
[2025-08-07] MEDS: SODIUM BICARBONATE 1150 MEQ IV ×2 (12:13→23:45)
[2025-08-07] MEDS: KCL 40 MEQ PO (12:13)
[2025-08-07 15:15] VITALS: BP 116/71
[2025-08-07] MEDS: ZOFRAN 4 MG IV (15:19)
[2025-08-07] MEDS: LOVENOX SC (17:44)
[2025-08-07] MEDS: REFRESH EYE DROPS (PF) 1 DROPS BOTH EYES (21:36)
[2025-08-07] MEDS: ATARAX 50 MG PO (21:36)
[2025-08-07 23:40] VITALS: BP 92/64
[2025-08-08] MEDS: SYNTHROID 88 MCG PO (05:53)
[2025-08-08 05:59] VITALS: BMI 28.0
[2025-08-08 08:00] VITALS: BP 108/65
[2025-08-08] MEDS: SODIUM BICARBONATE 1150 MEQ IV (08:34)
[2025-08-08] MEDS: PROTONIX 40 MG PO (08:34)
[2025-08-08 09:27] LABS: Blood Urea Nitrogen 12 mg/dl (7-17); Calcium 8.5 mg/dl (8.4-10.2); Carbon Dioxide 28 mmol/L (22-30); Chloride 101 mmol/L (98-107); Estimated Creatinine Clearance 95 ml/min; Glucose 86 mg/dl (70-99); Magnesium 1.5 mg/dl (1.6-2.3); Potassium 2.5 mmol/L (3.5-5.1); Sodium 136 mmol/L (135-145); eGFR > 60.00
[2025-08-08] MEDS: KCL 40 MEQ PO ×2 (10:13→20:34)
[2025-08-08] MEDS: KCL 270 MEQ IV (10:13)
[2025-08-08] MEDS: MAGNESIUM SULFATE 100 IV (10:14)
--- NOTE | 2025-08-08 10:28 | W.PN.HOSP.TC ---
Today's Communication/Plan
-
replete K and mag
Assessment / Plan
Assessment / Plan
pt is a 70 year old female
Aeromonas veronii gastroenteritis--metabolic acidosis from bicarbonate stool losses improved---CT with enteritis--start rocephin, change to oral meds at d/c--stop IVF with bicarb
hypokalemia/hypomagnesemia--replete
Shortness of breath/intermittent positional chest pain-- Likely secondary to depletion from ongoing gastroenteritis
Polycythemia--Secondary to volume contraction--improved
Ovarian cyst--Noted on CT abdomen/pelvis. Outpatient follow-up with PCP is recommended
Sigmoid diverticulosis--- Stable
DVT prophy--Lovenox
CODE STATUS-- Full code
Anticipated Discharge: Within 24 hours
Subjective/Interval History
-
Date of Service: August 08, 2025
pt diarrhea improving but not yet resolved
Objective Data
-
Labs:
Laboratory Results
08/08/25
07:47
WBC Pending
Hgb Pending
Hct Pending
Plt Count Pending
Sodium 136
Potassium 2.5 L*
Chloride 101
Carbon Dioxide 28
BUN 12
Creatinine 0.5 L
Glucose 86
Calcium 8.5
Vital Signs:
max temp for 24 hours
08/07/25
23:40
Temp 99.4 F
Vital Signs
Temp Pulse Resp BP Pulse Ox
99.2 F 90 18 108/65 95
08/08/25 08:00 08/08/25 08:00 08/08/25 08:00 08/08/25 08:00 08/08/25 08:00
I&O
08/07/25 08/08/25 08/09/25
06:59 06:59 06:59
Intake Total 1969
Balance 1969
Review of Systems
-
All other systems: Reviewed and negative
Abdomen/GI: Reports Diarrhea
Physical Exam
-
General: Well Developed, Well Nourished and No Apparent Distress
HEENT: Normocephalic and Atraumatic
Respiratory: Clear to Auscultation; Negative Wheezes or Rhonchi
Cardiac: Regular Rhythm and S1/S2; Negative Murmur
GI: Soft, Nontender, Nondistended and Normal Bowel Sounds
Musculoskeletal: No Clubbing, No Cyanosis and No Edema
Neuro: Awake
Psych: Calm
[2025-08-08 10:39] LABS: Hematocrit 33.2 % (37.0-47.0); Hemoglobin 12.3 g/dL (12.0-16.0); Mean Corp Hgb Conc. 37.0 g/dL (33.0-37.0); Mean Corpuscular Volume 83.2 fL (81.0-99.0); Platelet Count 292 10^3/uL (130-400); Red Cell Dist. Width 12.3 % (11.5-14.5)
[2025-08-08] MEDS: STERILE WATER FOR INJECTION 10 ML IV (11:55)
[2025-08-08] MEDS: ROCEPHIN 1000 MG IV (11:55)
[2025-08-08 16:00] VITALS: BP 125/78
[2025-08-08] MEDS: LOVENOX SC (17:21)
[2025-08-08 18:28] LABS: Magnesium 2.3 mg/dl (1.6-2.3); Potassium 3.3 mmol/L (3.5-5.1)
[2025-08-08] MEDS: ATARAX 50 MG PO (21:10)
[2025-08-08] MEDS: REFRESH EYE DROPS (PF) 1 DROPS BOTH EYES (21:12)
[2025-08-08 23:31] VITALS: BP 117/67
[2025-08-09] MEDS: SYNTHROID 88 MCG PO (05:54)
[2025-08-09 07:38] VITALS: BP 132/86
[2025-08-09 08:58] LABS: Blood Urea Nitrogen 7 mg/dl (7-17); Calcium 8.4 mg/dl (8.4-10.2); Carbon Dioxide 30 mmol/L (22-30); Chloride 105 mmol/L (98-107); Estimated Creatinine Clearance 95 ml/min; Glucose 148 mg/dl (70-99); Magnesium 2.0 mg/dl (1.6-2.3); Potassium 3.1 mmol/L (3.5-5.1); Sodium 138 mmol/L (135-145); eGFR > 60.00
[2025-08-09] MEDS: PROTONIX 40 MG PO (09:11)
[2025-08-09] MEDS: KCL 40 MEQ PO (10:29)
[2025-08-09 10:56] LABS: Hematocrit 32.4 % (37.0-47.0); Hemoglobin 11.9 g/dL (12.0-16.0); Mean Corp Hgb Conc. 36.7 g/dL (33.0-37.0); Mean Corpuscular Volume 84.6 fL (81.0-99.0); Red Cell Dist. Width 12.2 % (11.5-14.5)
--- NOTE | 2025-08-09 11:17 | PTCARENOTE ---
Assumed care of pt from previous nurse. Pt denies pain. Pt with no noted diarrhea, tolerating diet without issue. For dc today? Call cohen is within reach, pt rings [email or web address] cont to monitor.
--- NOTE | 2025-08-09 11:18 | W.DCSUMMARY ---
Discharge Summary
Discharge Data
Date of Admission: 08/06/25
Date of Discharge: 08/09/25
Total time spent discharging patient (in min): 35
-
Pending Results: No
Hospital Course
Attending physician on day of discharge:
Judy Sharpe MD
Admission diagnosis:
Diarrhea
Discharge diagnosis:
Aeromonas gastroenteritis
Secondary diagnoses:
Metabolic acidosis
Hypokalemia
Hypomagnesemia
Polycythemia
Ovarian cyst
Sigmoid diverticulosis
Consultations:
None
Procedures:
None
Hospital course:
70F with hypothyroidism, hemorrhoids presenting with diarrhea and weakness, admitted due to low bicarb level which improved with bicarb repletion and IV fluids. Her potassium and magnesium were also very low and these were successfully repleted.
Stool studies revealed Aeromonas Peroni gastroenteritis, CT of the abdomen also showed enteritis. She was started on Rocephin and had improvement in her diarrhea and was able to tolerate solid food, so was changed to oral antibiotics for discharge
to complete a 3-day course. She is advised to follow-up with her primary care physician for potassium recheck.
Diagnostic findings:
CT A/P - IMPRESSION:
Fluid-filled nondistended loops of large and small bowel, nonobstructive, pattern could represent enteritis. No intestinal obstruction or free air.
2.3 cm left ovarian simple follicle cyst.
Prior cholecystectomy. Mild prominence of the biliary tract likely the sequela of prior cholecystectomy.
Prior gastric bypass surgery.
Possible small hiatal hernia.
Physical exam on discharge:
Gen: NAD
HEENT: PERRLA, EOMI, MMM, neck supple
Cards: RRR, no M/G/R
Resp: Lungs CTAB, no W/R/R
GI: soft, NT/ND/NABS
MSK: No edema
Skin: warm and dry, no rash, ulcer or lesions
Heme: No LAD
Psych: Calm
Neuro: AAOx3
Discharge disposition:
Home
Discharge Plan
-
Patient Disposition: Home (Routine Discharge)
Discharge Diagnosis/Procedures: Aeromonas Ephraim I gastroenteritis, hypokalemia/hypomagnesemia, intermittent positional chest pain with shortness of breath, polycythemia, ovarian cyst, sigmoid diverticulosis
Condition: Good
Diet: As tolerated and Regular
Activity: As tolerated
Driving Restrictions: As prior to admission
Bathing Restrictions: None
Referrals:
Jessica Trivedi DO [Family Provider, Family Practice] - in less than 1 week
Additional Discharge Medication Instructions: See your physician in 1-2 weeks to recheck your potassium
Prescriptions:
New
sulfamethoxazole-trimethoprim [Bactrim DS] 800-160 mg tablet
1 tab PO BID 1 Days Qty: 2 0RF
Rx Instructions:
take on 08/10/25
Continued
ascorbic acid (vitamin C) [Vitamin C] 500 MG tablet
500 mg PO DAILY
Systane (PF) 1 EACH dropperette
1 drp BOTH EYES HS
ginkgo biloba leaf extract 60 mg Capsule
120 mg PO DAILY Qty: 0
ferrous gluconate 225 mg (27 mg iron) Tablet
225 mg PO DAILY Qty: 0
calcium carb-D3-mag ox-zinc ox 333 mg-133 unit -133 mg-5 mg Tablet
1 tab PO DAILY Qty: 0
multivitamin with folic acid [Tab-A-Ralf] 1 TABLET tablet
1 tab PO DAILY
turmeric 400 mg Capsule
400 mg PO DAILY Qty: 0
hydroxyzine HCl 50 mg Tablet
50 mg PO HS
levothyroxine [Synthroid] 88 mcg Tablet
88 mcg PO DAILY
horplkyzina-zzljfhuhy-vwk C-Mn 500-400 mg Capsule
1 cap PO DAILY
coQ10 (ubiquinol) 100 mg Capsule
100 mg PO DAILY
acetaminophen [Tylenol] 325 mg Tablet
650 mg PO DAILY
Discharge Orders:
Discharge Patient (As Directed); Ordered 08/09/25
Ordered By: Judy Sharpe
Discharge Date and Time
Print Language: RUSSIAN
--- NOTE | 2025-08-09 11:29 | CM ---
Chart reviewed. Patient will d/c today
Met w/ patient, aware of d/c. Has transport home
IMM verbally reviewed, copy provided, copy on chart
No CM needs at this time
Plan: Home, no needs
[2025-08-09 11:39] LABS: Platelet Count 211 10^3/uL (130-400)
[2025-08-09 11:42] VITALS: BP 119/69
[2025-08-09] MEDS: ROCEPHIN 1000 MG IV (12:02)
[2025-08-09] MEDS: STERILE WATER FOR INJECTION 10 ML IV (12:02)
--- NOTE | 2025-08-09 13:25 | PTCARENOTE ---
Pt dc to home, assisted to car to waiting via w/c escorted by staff. IV removed, all belongings taken with pt. Copy of paperwork provided and reviewed.
== END 2025-08-09 13:01 | disposition home or self-care (01) | DRG 372 ==
LOC: 4 WEST ACU 16:25
PROVIDERS: Internal Medicine; Physician Assistant; Student in an Organized Health Care Education/Training Program; ADMITTING PHYSICIAN Internal Medicine; ATTENDING PHYSICIAN Internal Medicine; EMERGENCY PHYSICIAN Emergency Medicine; FAMILY PHYSICIAN Family Medicine
DX: A04.8 Other specified bacterial intestinal infections (principal); E87.20 Acidosis, unspecified; E83.42 Hypomagnesemia; E87.6 Hypokalemia; I10 Essential (primary) hypertension; K44.9 Diaphragmatic hernia without obstruction or gangrene; D75.1 Secondary polycythemia; E03.9 Hypothyroidism, unspecified; K57.30 Diverticulosis of large intestine without perforation or abscess without bleeding; K64.8 Other hemorrhoids; Z79.899 Other long term (current) drug therapy; Z79.890 Hormone replacement therapy; Z87.891 Personal history of nicotine dependence; Z90.49 Acquired absence of other specified parts of digestive tract; Z98.84 Bariatric surgery status
CPT/HCPCS: 71046; 80048; 80053; 83605; 83690; 83735; 84132; 84443; 84484; 85025; 85027; 87070; 93005; 96361; 96374; 96375; 99284